=== PATIENT | female | born 1950 | race Caucasian/White ===

== ENCOUNTER 2021-10-23 21:02 | Emergency (ER) | payer OTHER ==
[~2021-10-23] VITALS: Ht 170.2 cm; Wt 90.7 kg
[2021-10-23] MEDS ORDERED: CYMBALTA20 M2 PO (21:28)
[2021-10-23] MEDS ORDERED: ROSUVASTATIN CAL5 MG PO (21:29)
== END 2021-10-23 23:47 | disposition home or self-care (01) ==
LOC: ER 21:02
DX: R04.0 Epistaxis (principal); Z79.899 Other long term (current) drug therapy
CPT/HCPCS: 99283

== ENCOUNTER 2024-01-17 06:12 | Day surgery (SDC) | payer OTHER ==
[~2024-01-17] VITALS: Ht 170.2 cm; Wt 93.2 kg
[~2024-01-17 06:12] MED LIST: Balanced Salt Epinephrine Irrigation Solution 500 mL IR PRN; CYMBALTA20 M2 PO; Lidocaine HCl/Pf 1% 5 ML VIAL XX SCH; NS 500 ML IV ONE; PHENYLEPHRINE\\TROPICAMIDE\\TETRACAINE OPHTHALMIC DILATING SOLN RIGHTEYE PRN; Povidone-Iodine 450 DROP/30 ML Solution LEFTEYE SCH; Povidone-Iodine 450 DROP/30 ML Solution ONE; Povidone-Iodine 450 DROP/30 ML Solution RIGHTEYE SCH; ROSUVASTATIN CAL5 MG PO; Tetracaine HCl/Pf 0.5% Opth Soln 4 ml ONE
[2024-01-17] MEDS ORDERED: Tropicamide 1% Opth Soln 15 ML BTL ONE (06:17)
[2024-01-17] MEDS ORDERED: NS 500 ML IV ONE (06:42)
--- NOTE | 2024-01-17 06:42 | NUR ---
01/17/24 0642 Arthur Palm CALL LIGHT WITHIN REACH. TETRACAINE IN AT 0634 AND PLEDGETT IN AT 0635 IN RIGHT EYE
[2024-01-17] MEDS ORDERED: Midazolam HCl 1MG / ML 2ML Vial ONE (06:53)
[2024-01-17] MEDS ORDERED: FentaNYL Citrate 50 MCG/ML 2 ML Injection ONE (06:53)
[2024-01-17] MEDS ORDERED: Vancomycin Ophth IR Soln 10 MG/0.2 ML SYR XX ONE (07:41)
[2024-01-17] MEDS ORDERED: Gentamicin Ophth IR Soln 4 MG/0.4 ML SYR XX ONE (07:41)
[2024-01-17 08:00] VITALS: BP 122/69
== END 2024-01-17 08:25 | disposition home or self-care (01) ==
LOC: ORSCSDS 06:12
PROVIDERS: Ophthalmology
PROC: 08RJ3JZ Replacement of Right Lens with Synthetic Substitute, Percutaneous Approach (ICD-10-PCS; principal; 2024-01-17 07:30)
DX: H25.11 Age-related nuclear cataract, right eye (principal); K21.9 Gastro-esophageal reflux disease without esophagitis; E78.5 Hyperlipidemia, unspecified; Z86.19 Personal history of other infectious and parasitic diseases; E66.9 Obesity, unspecified; Z68.32 Body mass index [BMI] 32.0-32.9, adult; Z87.891 Personal history of nicotine dependence; Z79.899 Other long term (current) drug therapy
CPT/HCPCS: J2250; J3010; J7040; V2632